=== PATIENT | male | born 1975 | race Caucasian/White ===

== ENCOUNTER → 2018-07-12 11:28 | Outpatient (CLI) | payer OTHER, SELFPAY ==
--- NOTE | 2018-07-12 11:50 | XR_ITS ---
XR chest 2V HISTORY: ITS.REASON: LT CHEST PAIN,SMOKER ORDERING PHYSICIAN: Oj Slater PATIENT AGE: 43 years COMPARISON: None FINDINGS: The cardiomediastinal silhouette and pulmonary vascularity are within normal limits. The lungs are clear without infiltrates, suspicious nodules, or pleural effusions. There is a 10 mm calcified nodule overlying the right lower lobe consistent with a granuloma. No acute bony abnormalities. IMPRESSION: Negative chest, no acute finding
== END ==
PROVIDERS: PCP Internal Medicine; Visit Provider Internal Medicine
DX: R07.89 Other chest pain (principal); Z72.0 Tobacco use
CPT/HCPCS: 71046

== ENCOUNTER → 2018-08-04 10:28 | Outpatient (CLI) | payer OTHER, SELFPAY ==
--- NOTE | 2018-08-04 10:43 | CT_ITS ---
CT chest wo/w con HISTORY: ITS.REASON: CHEST PAIN ORDERING PHYSICIAN: Oj Slater PATIENT AGE: 43 years COMPARISON: None Technique: Axial images obtained without and with contrast. 75 mL's Optiray 370 utilized.. Sagittal, and coronal reformatted images are also generated and reviewed. All CT scans at the facility use one or more dose reduction, viz: automated exposure control, ma/kV adjustment per patient size (including targeted exams where dose is matched to indication, i.e. head), or iterative reconstruction technique. FINDINGS: There are scattered small axillary and mediastinal lymph nodes. No enlarged lymph nodes apparent. No evidence of aortic aneurysm, dissection, or central pulmonary embolus. No pericardial effusion. No coronary artery calcifications apparent on the unenhanced images. There there is evidence of old granulomatous disease with a few calcified granulomas.. No suspicious pulmonary lesion. No lobar consolidation, collapse, central obstructing lesion, or pleural effusion no acute bony findings. Upper abdominal images show cortical scarring of the right kidney posteriorly. Along the superior pole the right kidney there is an indeterminate area of isodensity with some minimal peripheral calcification. This area measures approximately 1.8 x 1.2 cm and is indeterminate. Just lateral to this there is an area of decreased attenuation measuring 1.5 cm and may be due to a cyst with an adjacent area of cortical scarring. Ultrasound the kidney may be of further value to determine if these areas are cystic or solid. IMPRESSION: 1. No acute finding of the chest. 2. Indeterminate lesions of the upper pole the right kidney which may be better evaluated with ultrasound
== END ==
PROVIDERS: PCP Internal Medicine; Visit Provider Internal Medicine
DX: R07.9 Chest pain, unspecified (principal)
CPT/HCPCS: 71270; Q9967

== ENCOUNTER → 2018-08-13 10:35 | Outpatient (CLI) | payer OTHER, SELFPAY ==
--- NOTE | 2018-08-13 10:40 | US_ITS ---
US Kidney CLINICAL INDICATION: Follow-up renal lesion, abnormal CT scan ITS.REASON: RENAL LESION ORDERING PHYSICIAN: Oj Slater PATIENT AGE: 43 years Comparison: 08/04/2018 FINDINGS: Right kidney: The right kidney measures 12 x 7 x 7 cm. In the upper pole the right kidney there is a 18 x 8 mm cyst. This corresponds to the cystic appearing lesion noted on the CT scan. In addition, there is a complex tear echogenicity in the superior pole the right kidney corresponding to the indeterminate lesion noted on CT. This does show some increase echogenicity consistent with some calcification. This area measures 17 x 17 mm. Both of these areas are associated with scarring on the CT scan. The left kidney is 11 x 7 x 7 cm and has an unremarkable appearance. IMPRESSION: 1. There are 2 lesions in the upper pole the right kidney one of which represents a benign-appearing cyst. The second lesion measuring 17 x 17 mm corresponds to the indeterminate abnormality on the CT scan. This does not appear to represent a simple cyst by ultrasound. Could be due to an area of scarring with some minimal calcification. One cannot exclude possibility of neoplasm. Consider urology consult. Suggest [address] follow-up without contrast. Also if the patient has old CTs at another institution, would recommend obtaining those for comparison.
== END ==
PROVIDERS: PCP Internal Medicine; Visit Provider Internal Medicine
DX: N28.9 Disorder of kidney and ureter, unspecified (principal)
CPT/HCPCS: 76770

== ENCOUNTER → 2022-06-16 16:14 | Outpatient (CLI) | payer OTHER, SELFPAY ==
--- NOTE | 2022-06-16 16:20 | XR_ITS ---
PROCEDURE INFORMATION: Exam: XR Chest Exam date and time: 06/16/2022 4:27 PM Age: 47 years old Clinical indication: Patient HX: Previous cough and pain in left shoulder blade TECHNIQUE: Imaging protocol: Radiologic exam of the chest. Views: 2 views. COMPARISON: CHESTWW CT chest wo/w con 08/04/2018 11:09 AM FINDINGS: Lungs: There is a chronic 9 mm calcified granuloma in the right lower lobe as seen on prior chest CT of 08/04/2018. There are other ovoid densities projected over the upper and lower chest which have the appearance of overlying buttons/clothing artifacts. No pulmonary consolidation. No acute findings. Pulmonary vessels do not appear congested. Lung volumes within normal limits. Pleural spaces: Unremarkable. No significant pleural effusion. No pneumothorax. Heart/Mediastinum: The cardiac silhouette is normal. Bones/joints: There are spinal degenerative changes, with multilevel disc narrrowing and spondylosis.There is no evidence of acute fracture. Mild anterior wedge deformities in the lower thoracic and upper lumbar spine, chronic compared with 2019. IMPRESSION: 1. No acute findings. 2. Chronic granulomatous changes.
--- NOTE | 2022-06-16 16:39 | ECG_ITS ---
APPROVED REPORT Exam: Resting ECG HR:62 bpm ECG Measurements Heart Rate 62 AXES IL 144 P 59 QRSd 102 QRS 67 QT 363 T 12 QTc 367 Conclusion SINUS RHYTHM NORMAL ECG Electronically signed by : Oj Slater MD 06/20/2022 18:03:56
== END ==
PROVIDERS: PCP Internal Medicine; Visit Provider Internal Medicine
DX: R05.9 Cough, unspecified (principal); I10 Essential (primary) hypertension; M25.512 Pain in left shoulder
CPT/HCPCS: 71046; 93005

== ENCOUNTER → 2022-06-21 08:02 | Outpatient (CLI) | payer OTHER, SELFPAY ==
[2022-06-21 08:52] LABS: Microalbumin/Creatinine Ratio 17.4
[2022-06-21 09:11] LABS: Creatinine,Urine Random 66 mg/dL (Not Estab.); Hemoglobin A1C 10.4 % (4.0-6.0)
[2022-06-21 09:14] LABS: Alanine Aminotransferase 34 U/L (12-78); Alkaline Phosphatase 78 U/L (38-126); Anion Gap 8.6 mEq/L (5-15); Aspartate Amino Transferase 25 U/L (17-59); Bilirubin,Total 0.6 mg/dl (0.2-1.3); Blood Urea Nitrogen 12 mg/dl (9-20); Calcium 9.2 mg/dl (8.4-10.2); Carbon Dioxide 27 mmol/L (22.0-30.0); Chloride 104 mmol/L (98-107); Chol/HDL Ratio 7.6 (1-3.5); Cholesterol 250 mg/dl (140-200); Estimated Glomerular Filt Rate 145 ml/min (>60); GFR (African American) 176 ML/MIN (>60); Globulin 2.5 g/dL (1.3-3.2); Glucose 177 mg/dl (74-100); HDL Cholesterol 33 mg/dl (40-60); Potassium 4.6 mmoL/L (3.5-5.1); Sodium 135 mmol/L (136-145); Total Protein,Serum 7.5 g/dl (6.3-8.2)
[2022-06-21 09:15] LABS: Triglycerides 498 mg/dl (30-150)
[2022-06-21 09:25] LABS: Direct LDL Cholesterol 109.56 mg/dL (100-129)
== END ==
PROVIDERS: PCP Internal Medicine; Visit Provider Internal Medicine
DX: E11.9 Type 2 diabetes mellitus without complications (principal); I10 Essential (primary) hypertension; E78.5 Hyperlipidemia, unspecified
CPT/HCPCS: 36415; 80053; 80061; 82043; 82570; 83036

== ENCOUNTER → 2022-07-16 17:04 | Outpatient (CLI) | payer OTHER, SELFPAY ==
[2022-07-16 18:49] LABS: Blood Urea Nitrogen 15 mg/dl (9-20); Estimated Glomerular Filt Rate 121 ml/min (>60); GFR (African American) 147 ML/MIN (>60)
== END ==
PROVIDERS: PCP Internal Medicine; Visit Provider Internal Medicine
DX: Z01.812 Encounter for preprocedural laboratory examination (principal)
CPT/HCPCS: 82565; 84520

== ENCOUNTER → 2022-08-07 07:51 | Outpatient (CLI) | payer OTHER, SELFPAY ==
--- NOTE | 2022-08-07 | CA_ITS ---
APPROVED REPORT Exam: Exercise Treadmill Technologist: Annamaria Prather, Ht: 6 ft 1 in Wt: 219 lbs BSA: 2.24 m2 HR: 69 bpm BP: 156/90 mmHg Rhythm: NSR Medical History Medications: Lisinopril,,,,, Lipitor,,,,, JuARDIANCE,,,,, Cardiac Risk Factors: HTN, Hyperlipidemia, Diabetes (non-insulin), FHX of CAD, Smoking Stress Test Details Test: Moi HR Resting HR: 79 bpm Max Heart Rate (APMHR): 174 bpm Max HR Achieved: 144 bpm Target HR (85% APMHR): 148 bpm % of APMHR: 83 Recovery HR: 108 bpm BP Resting BP: 137/92 mmHg Max BP: 229/106 mmHg Recovery BP: 229.0/106.0 mmHg ECG Resting ECG: NSR Clinical Exercise duration: 09:01 min Highest Stage Achieved: Exercise capacity: 10.1 METs Stress ECG Conclusion PT EXERCISED ON MOI PROTOCOL TOTAL OF 9 MINUTES. NO CP NOTED. OCCASIONAL PAC NOTED. APPROX 1-1.5MM UPSLOPING ST DEPRESSION LATERALLY AND 1MM INFERIORLY. EKG CHANGES NEGATIVE FOR ISCHEMIA.HYPERTENSIVE BP RESPONSE.GOOD EXERCISE TOLERANCE. Test Summary REST . . . . . . . Sitting REST . . . . . . . Sitting REST . . . . . . . Standing REST 03:33 0.0 0.0 79 . 137/ 92 . . Stage 1 01:00 10.0 1.7 89 . . . . Stage 1 02:00 10.0 1.7 100 . . . . Stage 1 03:00 10.0 1.7 98 . 170/ 90 . . Stage 2 01:00 12.0 2.5 103 . . . . Stage 2 02:00 12.0 2.5 111 . . . . Stage 2 03:00 12.0 2.5 115 . 216/ 96 . . Stage 3 01:00 14.0 3.4 130 . . . . Stage 3 02:00 14.0 3.4 138 . . . . Stage 3 03:00 14.0 3.4 144 . 220/ 90 . . Stage 4 00:01 16.0 4.2 144 . . . Stop exercise at 09:01 RECOVERY 01:00 0.0 0.0 123 . . . . RECOVERY 02:00 0.0 0.0 105 . 229/106 . . RECOVERY 03:00 0.0 0.0 97 . 229/106 . . RECOVERY 04:00 0.0 0.0 97 . 209/ 94 . . RECOVERY 05:00 0.0 0.0 95 . 189/ 90 . . RECOVERY 06:00 0.0 0.0 92 . 189/ 90 . . RECOVERY 06:30 0.0 0.0 90 . 163/ 89 . . Electronically signed by : Oj Slater MD 08/13/2022 13:31:45
== END ==
PROVIDERS: PCP Internal Medicine; Visit Provider Internal Medicine
DX: R07.9 Chest pain, unspecified (principal)
CPT/HCPCS: 93017

== ENCOUNTER → 2023-01-12 16:45 | Outpatient (CLI) | payer OTHER, SELFPAY ==
[2023-01-12 17:52] LABS: Hemoglobin A1C 8.1 % (4.0-6.0)
[2023-01-12 18:34] LABS: Alanine Aminotransferase 36 U/L (12-78); Albumin Level 4.4 g/dl (3.5-5.0); Albumin/Globulin Ratio 1.6 (1.1-1.8); Alkaline Phosphatase 74 U/L (38-126); Anion Gap 14.1 mEq/L (5-15); Aspartate Amino Transferase 28 U/L (17-59); Bilirubin,Total 0.3 mg/dl (0.2-1.3); Blood Urea Nitrogen 16 mg/dl (9-20); Calcium 9.2 mg/dl (8.4-10.2); Carbon Dioxide 25 mmol/L (22.0-30.0); Chloride 106 mmol/L (98-107); Chol/HDL Ratio 3.8 (1-3.5); Cholesterol 136 mg/dl (140-200); Estimated Glomerular Filt Rate 121 ml/min (>60); GFR (African American) 146 ML/MIN (>60); Globulin 2.8 g/dL (1.3-3.2); Glucose 134 mg/dl (74-100); HDL Cholesterol 36 mg/dl (40-60); Potassium 4.1 mmoL/L (3.5-5.1); Sodium 141 mmol/L (136-145); Total Protein,Serum 7.2 g/dl (6.3-8.2); Triglycerides 188 mg/dl (30-150); VLDL Cholesterol 38 mg/dL (0-40)
[2023-01-12 18:45] LABS: Direct LDL Cholesterol 76.32 mg/dL (100-129)
[2023-01-12 19:01] LABS: Creatinine,Urine Random 81 mg/dL (Not Estab.)
[2023-01-12 19:04] LABS: Microalbumin/Creatinine Ratio 9.8
== END ==
PROVIDERS: PCP Internal Medicine; Visit Provider Internal Medicine
DX: E11.9 Type 2 diabetes mellitus without complications (principal); E78.5 Hyperlipidemia, unspecified; I10 Essential (primary) hypertension
CPT/HCPCS: 80053; 80061; 82043; 82570; 83036

== ENCOUNTER 2023-08-03 14:55 | Outpatient (POV) | payer BC, SELFPAY ==
--- NOTE | 2023-08-03 15:19 | EXP.PAIN.OV ---
HPI Data of Consult Patient: new to practice Consult date: 08/03/23 Requesting Physician: Trish Singer APRN Primary Care Provider: Oj Slater MD Consult Narrative Reason for consult: Scapular pain History of present illness: Mr. Mason is a 48 year old male who presents today as a new patient. He is a referral from Dr. Slater's office. Today he rates his pain a 1 out of 10. Patient states that he will have random shoulder pains on and off again. Patient states this has been going on for years unrelated to any specific trauma or injury. He states that when it is flared up it will be a pulsating achy sensation that does interfere with his activities of daily living. Patient does state initially it started more along the left shoulder however it is now at the right shoulder and it has been sometime since the left is bothered him. Patient has had cardiac workup with no acute findings. Patient has also done some imaging at [facility] however he is unsure what all imaging was done. Patient has tried Tylenol and ibuprofen along with heat and ice and topicals with minimal relief. Patient does state that he feels like when it does flareup it is more related to possible nerves.Patient was prescribed gabapentin from Dr. Slater's office however he states he did not like the way it made him feel and he discontinued this medication. His Maxim has been reviewed and is appropriate. CC: Trish Singer APRN [facility] Disclaimer: The information contained in this section may have been updated after the patient was seen, as this information can be updated by other users. Social History Smoking Status: Unknown if ever smoked alcohol intake: never current occupational status: employed Travel in the last 8 weeks: None Review of Systems Review of Systems Review of systems:: pertinent systems reviewed and negative unless documented below Review of systems (narrative): Review of Systems: General: No recent weight changes, no fever, no sleep disturbances Respiratory: No cough, no shortness of air, no recurring pulmonary infections Cardiovascular/peripheral vascular: No chest pain, no palpitations, no edema, no shortness of breath Gastrointestinal: No new onset incontinence, normal bowel movements reported Genitourinary: No new onset incontinence Musculoskeletal: Right scapular pain Psychiatric: [Normal mood/affect] Neurological: [Denies weakness in extremities], [denies balance issues] Meds Home Medications and Allergies New Prescriptions to Start Prescriptions: Objective Narrative: Physical Exam: General: Alert and oriented x3, no acute distress, pleasant and cooperative Lungs: Respirations even and unlabored, symmetrical chest expansion Eyes: PERRL Musculoskeletal: Flexion and extension of lumbar spine within normal limits Neurological: Speech clear, no gross sensory deficit Assessment and Plan *Assessment and plan (1) Chronic scapular pain: Status: Acute Category: Medical Code(s): M89.8X1 - Other specified disorders of bone, shoulder; G89.29 - Other chronic pain (2) Myofascial pain: Status: Acute Category: Medical Code(s): M79.18 - Myalgia, other site Plan Patient will have random flareups of his scapular pain however he is not experiencing any issues currently. I have discussed with the patient in future he can contact us at his convenience when he has these flareups. I have discussed with the patient that he may have additional relief with trigger point injections when this pain occurs. I will order the patient a compounded cream to have on hand. Patient will contact us for his next follow-up appointment. Patient agrees with this plan of care. Patient has been instructed to contact the clinic with any concerns before the next appointment. Dr. Alicia has reviewed this note and agrees with this plan of care. This note was dictated using voice recognition software and make contain errors or omissions.
[2023-08-03 15:56] VITALS: BP 146/84; PULSE 71; RESP 18; O2SAT 97; BMI 28.3
== END 2023-08-03 23:59 | disposition home or self-care (01) ==
LOC: SC.PAIN 14:56
PROVIDERS: PCP Internal Medicine; Visit Provider Nurse Practitioner Family
DX: M89.8X1 Other specified disorders of bone, shoulder (principal); G89.29 Other chronic pain; M79.18 Myalgia, other site
CPT/HCPCS: 99202; G0463

== ENCOUNTER 2023-08-26 16:38 | Outpatient (CLI) | payer BC, SELFPAY ==
[2023-08-26 17:21] LABS: Basophils # 0.1 K/mm3 (0-0.2); Basophils % 0.5 % (0.1-2.0); Eosinophils # 0.2 K/mm3 (0.0-0.4); Eosinophils % 1.8 % (0.1-12.0); Hematocrit 49.6 % (42.0-52.0); Hemoglobin 16.8 g/dL (14.1-18.0); Lymphocytes # 3.7 K/mm3 (0.7-4.5); Lymphocytes % 30.7 % (10-50); Mean Corpuscular HGB Conc 33.9 g/dL (31.8-35.4); Mean Corpuscular Volume 91.4 fl (80-94); Mean Platelet Volume 7.7 fl (7.4-10.4); Monocytes # 0.5 K/mm3 (0.1-1.0); Monocytes % 4.5 % (1.7-9.3); Neutrophils # 7.5 K/mm3 (1.8-7.8); Neutrophils % 62.4 % (37.0-80.0); Platelet Count 279 K/mm3 (142-424); Red Blood Count 5.42 M/mm3 (4.60-6.20); Red Cell Distribution Width 13.6 % (11.5-17.5)
[2023-08-26 18:44] LABS: Alanine Aminotransferase 32 U/L (12-78); Albumin Level 4.3 g/dl (3.5-5.0); Albumin/Globulin Ratio 1.8 (1.1-1.8); Alkaline Phosphatase 79 U/L (38-126); Anion Gap 14.9 mEq/L (5-15); Aspartate Amino Transferase 22 U/L (17-59); Bilirubin,Total 0.4 mg/dl (0.2-1.3); Blood Urea Nitrogen 15 mg/dl (9-20); Calcium 9.2 mg/dl (8.4-10.2); Carbon Dioxide 24 mmol/L (22.0-30.0); Chloride 104 mmol/L (98-107); Chol/HDL Ratio 2.5 (1-3.5); Cholesterol 105 mg/dl (140-200); Estimated Glomerular Filt Rate 104 ml/min (>60); GFR (African American) 125 ML/MIN (>60); Globulin 2.4 g/dL (1.3-3.2); Glucose 103 mg/dl (74-100); HDL Cholesterol 42 mg/dl (40-60); Potassium 3.9 mmoL/L (3.5-5.1); Sodium 139 mmol/L (136-145); Total Protein,Serum 6.7 g/dl (6.3-8.2); Triglycerides 147 mg/dl (30-150); VLDL Cholesterol 29 mg/dL (0-40)
[2023-08-26 18:57] LABS: Direct LDL Cholesterol 54.37 mg/dL (100-129)
[2023-08-26 19:44] LABS: Hemoglobin A1C 7.5 % (4.0-6.0)
[2023-08-26 20:05] LABS: Creatinine,Urine Random 245 mg/dL (Not Estab.)
[2023-08-26 20:06] LABS: Microalbumin/Creatinine Ratio 5.6
== END 2023-08-26 23:59 | disposition home or self-care (01) ==
LOC: LAB.DROPOF 16:39
PROVIDERS: PCP Internal Medicine; Visit Provider Internal Medicine
DX: E11.9 Type 2 diabetes mellitus without complications (principal); I10 Essential (primary) hypertension; E78.5 Hyperlipidemia, unspecified; R53.83 Other fatigue; M79.2 Neuralgia and neuritis, unspecified; Z79.84 Long term (current) use of oral hypoglycemic drugs
CPT/HCPCS: 80053; 80061; 82043; 82570; 83036; 85025

== ENCOUNTER 2024-02-23 13:52 | Outpatient (CLI) | payer BC, SELFPAY ==
--- OUTSIDE RECORDS SUMMARY | 2024-02-23 13:57 | XMS_ITS | Encounter Summary ---
Author Organization Healthcare Address [address] [place] [address] Care Team Providers Care Press Operator Automatic Name Role Phone Unavailable Primary Care Provider Unavailabl e Encounter Details Date Type Department Care Team (Late st Contact Info) Description 10/24/2022 Telephone [facility] [address] [place] [address] Tali Ovalle, RN [facility] Social History Tobacco Use Types Packs/Day Years Used Date Smoking Tobacco: Never Assessed Sex and Gender Information Value Date Recorded Sex Assigned at Not on file Legal Sex Male 7:40 PM EDT Gender Identity Not on file Sexual Orientation Not on file documented as of this encounter Plan of Treatment Not on file documented as of this encounter Visit Diagnoses Not on filedocumented in this encounter
--- OUTSIDE RECORDS SUMMARY | 2024-02-23 13:57 | XMS_ITS | Encounter Summary ---
Author Organization Healthcare Address [address] [place] [address] Care Team Providers Care Buttonhole Tacker Name Role Phone Oj Slater MD Primary Care Provider [phone] Encounter Details Date Type Department Care Team (Late st Contact Info) Description 11/03/2022 Telephone [facility] [address] [place] [address] Tali Ovalle, RN [facility] Social History [...] Diagnoses Not on filedocumented in this encounter Care Teams Buttonhole Tacker Relationship Specialty Start Date End Date Oj Slater MD [address] [place] [address] PCP - General 10/31/22 documented as of this encounter
--- OUTSIDE RECORDS SUMMARY | 2024-02-23 13:57 | XMS_ITS | Encounter Summary ---
Author Organization [facility] Address [address] [place] [address] Care Team Providers Care Preschool Assistant Name Role Phone Oj Slater MD Primary Care Provider [phone] Encounter Details Date Type Department Care Team (Latest Contact Info) Description 10/31/2022 Travel Social History Tobacco Use Types Packs/Day Years [...] on filedocumented in this encounter Care Teams Preschool Assistant Relationship Specialty Start Date End Date Oj Slater MD [address] [place] [address] PCP - General 10/31/22 documented as of this encounter
--- OUTSIDE RECORDS SUMMARY | 2024-02-23 13:57 | XMS_ITS | Encounter Summary ---
Author Organization Healthcare Address [address] [place] [address] Care Team Providers Care Flight Nurse Name Role Phone Unavailable Primary Care Provider Unavailabl e Encounter Details Date Type Department Care Team (Late st Contact Info) Description 10/29/2022 Telephone [facility] [address] [place] [address] Tali Ovalle, RN [facility] Social History [...]
--- OUTSIDE RECORDS SUMMARY | 2024-02-23 13:57 | XMS_ITS | Encounter Summary ---
Author Organization [facility] Address [address] [place] [address] Care Team Providers Care Vaccine Manager Name Role Phone Unavailable Primary Care Provider Unavailabl e Encounter Details Date Type Department Care Team (Latest Contact Info) Description 10/29/2022 Travel Social History Tobacco Use Types Packs/Day [...]
--- OUTSIDE RECORDS SUMMARY | 2024-02-23 13:57 | XMS_ITS | Encounter Summary ---
Author Organization [facility] Address [address] [place] [address] Care Team Providers Care Paper Final Inspector Name Role Phone Oj Slater MD Primary Care Provider [phone] Reason for Referral * Imaging (Routine) - Closed Specialty Diagnoses / Procedures Referred By Petra rodarte Referred To Contact Radiology Diagnoses Coronary arteriosclerosis Procedures CT Angio Cardiac Coronary Arteries Galen Peters MD [address] [place] [address] Phone: tel: fax: Referral ID Status Reason Start Date Expiration Date Visits Re quested Visits Authorized [id number] Closed 10/08/2022 04/08/2024 1 1 Reason for Visit * Imaging (Routine) - Closed Specialty Diagnoses / Procedures Referred By Petra rodarte Referred To Contact Radiology Diagnoses Coronary arteriosclerosis Procedures CT Angio Cardiac Coronary Arteries Galen Peters MD [address] [place] [address] Phone: tel: fax: Referral ID Status Reason Start Date Expiration Date Visits Re quested Visits Authorized [id number] Closed 10/08/2022 04/08/2024 1 1 Encounter Details Date Type Department Care Team (Latest Contact Info) Description 10/31/2022 9:47 AM EDT - 10/31/2022 11:59 PM EDT Hospital Encounter [facility] [address] [place] [address] Coronary arteriosclerosis Discharge Disposition: Home or Self Care Social History Tobacco Use Types Packs/Day Years Used Date Smoking Tobacco: Never Assessed Sex and Gender Information Value Date Recorded Sex Assigned at Not on file Legal Sex Male 7:40 PM EDT Gender Identity Not on file Sexual Orientation Not on file documented as of this encounter Last Filed Vital Signs Vital Sign Reading Time Taken Comments Blood Pressure 131/82 10/31/2022 11:04 AM EDT Pulse 68 10/31/2022 11:04 AM EDT Temperature - - Respiratory Rate 19 10/31/2022 10:00 AM EDT Oxygen Saturation 96% 10/31/2022 11:04 AM EDT Inhaled Oxygen Concentration - - Weight 102 kg (224 lb) 10/31/2022 10:00 AM EDT Height - - Body Mass Index - - documented in this encounter Discharge Instructions * Attachments The following attachments cannot be sent through Care Everywhere. * Contrast Imaging Discharge Instructions ([place]) ([place]) documented in this encounter Plan of Treatment Not on file documented as of this encounter Procedures Procedure Name Priority Date/Time Associated Diagnosis Comments CT ANGIO CARDIAC CORONARY ARTERIES Routine 10/31/2022 11:00 AM EDT Coronary arteriosclerosis POCT CREATININE ISTAT UNSOLICITED RESULTS Routine 10/31/2022 10:12 AM EDT documented in this encounter Results * CT Angio Cardiac Coronary Arteries (10/31/2022 11:00 AM EDT) Anatomical Region Laterality Modality Heart Computed Tomogra phy Impressions 10/31/2022 3:36 PM EDT IMPRESSION: 1. Minimal coronary calcification with an Agatston score = 2 using the AJ-130 method, which represents 76th percentile when matched for age, gender and ethnicity. ??Vascular age is 48 years. 2. Minimal focal stenosis of the LAD secondary to noncalcified plaque. Minimal focal stenosis of the RCA secondary to mixed plaque. 3. CAD-RADS 1: Management recommendations: ??Consider non-atherosclerotic causes of chest pain. Consider referral for outpatient follow-up for preventative therapy and risk factor modification. ? 4. ??Dependent filling defect in the SVC is favored to represent artifact secondary to contrast admixture, however thrombus cannot definitely be excluded. Dedicated MRV or CTV may be considered. 5. Hepatic steatosis. Small hiatal hernia. CRITICAL RESULT: No. COMMUNICATION: Per this written report. By electronically signing this report, I, the attending physician, attest that I have personally reviewed the images/data for the above examination(s) and agree with the final edited report. Drafted by Dudley Grissom MD on 10/31/2022 11:24 AM Final report signed by Pretty Madrigal MD on 10/31/2022 3:36 PM Narrative 10/31/2022 3:36 PM EDT CLINICAL INDICATION: 47-year-old male evaluated at the request of Galen Peters M.D. Symptoms: Not available Clinical Data Height: Not available Weight: 102 kg Risk Factors: Not available Relevant Cardiac Diagnostic Tests: N/a TECHNIQUE: Procedure Data Image Acquisition: A Dual source 192 MDCT scanner (Som[employer] Force, [employer]) was used for data acquisition. A non-contrast coronary calcium scan was initially performed. Bolus tracking in the ascending aorta with a threshold of 220HU was performed. Immediately afterwards, ECG synchronized Cardiac CT was then performed from cardiac base to apex using prospective gating. A total of 80 mL Omnipaque 350mgI/mL contrast media was administered at 6 mL/sec followed by a saline flush using a biphasic injection protocol. ??A tube voltage of 120 kVp was used. ?? The patient received the following medications prior to the Cardiac CT: 50mg of po metoprolol, and 0.8mg sublingual nitroglycerin. The average heart rate at the time of acquisition was 67 bpm (64 bpm to 68 bpm) and regular. Image Reconstruction: Transaxial images were reconstructed at 0.75 mm slice thickness. ??Data was reviewed interactively on an advanced workstation ([employer]) capable of 2 and 3 dimensional displays in all conventional reconstruction formats including multiplanar reformations, maximum intensity projections, curved multiplanar reformations, and volume rendered reconstructions. Selected routine images displaying relevant coronary anatomy and pathology were saved and sent to PACS. Complications: None Technical Quality: Overall image quality is Good. Coronary artery opacification is Adequate and the images are free of significant artifact. Total DLP (Dose-Length Product): 293.82 mGy.cmmGycm. (4.1 mSv) Please note: The reported value represents the total of one or more individual components during the CT acquisition on this date and at this time, and as such, the same value may appear in more than one CT report depending on the interpreting/reporting physicians. COMPARISON: None available. FINDINGS: -CT Coronary Calcium Scoring- LMA= 0 LAD= 0 LCX= 0 RCA= 2 Total calcium score = 2 using the AJ-130 method. This score is in the 76th percentile rank for age and gender, meaning that 24 % of patients of the same age and gender will have a higher score. The total volume score is 3.1. The calculated vascular age for this patient is 48 years. There is no identifiable calcification in the aortic wall, mitral annulus/valve, pericardium, myocardium. -Coronary CT Angiography- Coronary Arteries: The coronaries have normal origin and proximal course. The coronary arterial system is right ??dominant. Note: Stenosis is reported as maximum percentage diameter stenosis. Stenosis grading is reported using the following scheme. Quantitative Stenosis Grading: CAD-RADS 0: 0% - No visible stenosis CAD-RADS 1: 1-24% - Minimal stenosis CAD-RADS 2: 25-49% - Mild stenosis CAD-RADS 3: 50-69% - Moderate stenosis CAD-RADS 4A: 70-99% - Severe stenosis in 1-2 vessels CAD-RADS 4B: Left main >50%, or 3 vessel >70% CAD-RADS 5: 100% - Occluded Left Main: CAD-RADS 0 The left main bifurcates into the left anterior descending artery and left circumflex artery. LAD and Diagonals: CAD-RADS 1. Minimal focal stenosis of the proximal LAD secondary to noncalcified plaque. LCx and Obtuse Marginals: CAD-RADS 0. The LCx is a small caliber vessel which becomes very diminutive after giving off its second obtuse marginal branch. Uptake is marginal branches are without atherosclerotic plaque or stenosis. RCA: CAD-RADS 1. Proximal RCA demonstrates small focal mixed plaque where there is minimal stenosis. Non Coronary Cardiac Findings: Normal cardiac chamber size. No pericardial thickening or calcification. Normal interatrial and interventricular septum, aortic and mitral valves, pulmonary veins and imaged central veins. Extra Cardiac Structures: Central and branch pulmonary arteries in the field of view are unremarkable. Thoracic aorta and imaged thoracic aortic branches in the field of view are unremarkable. Dependent filling defect in the SVC. No mediastinal or hilar adenopathy. Calcified mediastinal lymph node. ??No suspicious pulmonary nodules. Pulmonary calcified granuloma. Hepatic steatosis. Small hiatal hernia. Procedure Note Pretty Madrigal MD - 10/31/2022 CLINICAL INDICATION: 47-year-old male evaluated at the request of Galen Peters M.D. Symptoms: Not available Clinical Data Height: Not available Weight: 102 kg Risk Factors: Not available Relevant Cardiac Diagnostic Tests: N/a TECHNIQUE: Procedure Data Image Acquisition: A Dual source 192 MDCT scanner (Som[employer] Force, [employer])was used for data acquisition. A non-contrast coronary calcium scan wasinitially performed. Bolus tracking in the ascending aorta with athreshold of 220HU was performed. Immediately afterwards, ECG synchronizedCardiac CT was then performed from cardiac base to apex using prospectivegating. A total of 80 mL Omnipaque 350mgI/mL contrast media wasadministered at 6 mL/sec followed by a saline flush using a biphasicinjection protocol. A tube voltage of 120 kVp was used. The patient received the following medications prior to the Cardiac CT:50mg of po metoprolol, and 0.8mg sublingual nitroglycerin. The average heart rate at the time of acquisition was 67 bpm (64 bpm to 68bpm) and regular. Image Reconstruction: Transaxial images were reconstructed at 0.75 mm slice thickness. Data wasreviewed interactively on an advanced workstation ([employer]) capable of 2and 3 dimensional displays in all conventional reconstruction formatsincluding multiplanar reformations, maximum intensity projections, curvedmultiplanar reformations, and volume rendered reconstructions. Selectedroutine images displaying relevant coronary anatomy and pathology weresaved and sent to PACS. Complications: None Technical Quality: Overall image quality is Good. Coronary artery opacification is Adequate and the images are free ofsignificant artifact. Total DLP (Dose-Length Product): 293.82 mGy.cmmGycm. (4.1 mSv) Pleasenote: The reported value represents the total of one or more individualcomponents during the CT acquisition on this date and at this time, and assuch, the same value may appear in more than one CT report depending onthe interpreting/reporting physicians. COMPARISON: None available. FINDINGS: -CT Coronary Calcium Scoring- LMA= 0 LAD= 0 LCX= 0 RCA= 2 Total calcium score = 2 using the AJ-130 method. This score is in the 76thpercentile rank for age and gender, meaning that 24 % of patients of thesame age and gender will have a higher score. The total volume score is3.1. The calculated vascular age for this patient is 48 years. There is no identifiable calcification in the aortic wall, mitralannulus/valve, pericardium, myocardium. -Coronary CT Angiography- Coronary Arteries: The coronaries have normal origin and proximal course. The coronaryarterial system is right dominant. Note: Stenosis is reported as maximum percentage diameter stenosis.Stenosis grading is reported using the following scheme. Quantitative Stenosis Grading: CAD-RADS 0: 0% - No visible stenosis CAD-RADS 1: 1-24% - Minimal stenosis CAD-RADS 2: 25-49% - Mild stenosis CAD-RADS 3: 50-69% - Moderate stenosis CAD-RADS 4A: 70-99% - Severe stenosis in 1-2 vessels CAD-RADS 4B: Left main >50%, or 3 vessel >70% CAD-RADS 5: 100% - Occluded Left Main: CAD-RADS 0 The left main bifurcates into the left anteriordescending artery and left circumflex artery. LAD and Diagonals: CAD-RADS 1. Minimal focal stenosis of the proximal LADsecondary to noncalcified plaque. LCx and Obtuse Marginals: CAD-RADS 0. The LCx is a small caliber vesselwhich becomes very diminutive after giving off its second obtuse marginalbranch. Uptake is marginal branches are without atherosclerotic plaque orstenosis. RCA: CAD-RADS 1. Proximal RCA demonstrates small focal mixed plaque wherethere is minimal stenosis. Non Coronary Cardiac Findings: Normal cardiac chamber size. No pericardial thickening or calcification. Normal interatrial and interventricular septum, aortic and mitral valves,pulmonary veins and imaged central veins. Extra Cardiac Structures: Central and branch pulmonary arteries in the field of view areunremarkable. Thoracic aorta and imaged thoracic aortic branches in the field of vieware unremarkable. Dependent filling defect in the SVC. No mediastinal or hilar adenopathy. Calcified mediastinal lymph node. Nosuspicious pulmonary nodules. Pulmonary calcified granuloma. Hepaticsteatosis. Small hiatal hernia. IMPRESSION: IMPRESSION: 1. Minimal coronary calcification with an Agatston score = 2 using theAJ-130 method, which represents 76th percentile when matched for age,gender and ethnicity. Vascular age is 48 years. 2. Minimal focal stenosis of the LAD secondary to noncalcified plaque.Minimal focal stenosis of the RCA secondary to mixed plaque. 3. CAD-RADS 1: Management recommendations: Consider non-atheroscleroticcauses of chest pain. Consider referral for outpatient follow-up forpreventative therapy and risk factor modification. 4. Dependent filling defect in the SVC is favored to represent artifactsecondary to contrast admixture, however thrombus cannot definitely beexcluded. Dedicated MRV or CTV may be considered. 5. Hepatic steatosis. Small hiatal hernia. CRITICAL RESULT: No. COMMUNICATION: Per this written report. By electronically signing this report, I, the attending physician, saumya I have personally reviewed the images/data for the aboveexamination(s) and agree with the final edited report. Drafted by Dudley Grissom MD on 10/31/2022 11:24 AM Final report signed by Pretty Madrigal MD on 10/31/2022 3:36 PM us Galen Peters MD IMG CT PROCEDURES Final Resul t * (ABNORMAL) POCT creatinine (10/31/2022 10:12 AM EDT) Pathologist [facility] Creatinine, Point of Care 0.5(L) 0.8 - 1.3 mg/dL 10/31/2022 10:15 AM EDT [facility] POCT eGFR 127 mL/min/1. 73m*2 10/31/2022 10:15 AM EDT [facility] Nurse Midwife/Clinical Instructor ID Karen Curtis 10/31/2022 10:15 AM EDT [facility] Device ID [id number] 10/31/2022 10:15 AM EDT [facility] Comment 10/31/2022 10:15 AM EDT [facility] Comment:Testing performed on i-STAT at the point of care. Reported eGFRcr in mL/min/1.73m2 is based the CKD-EPI 2020 equation that does not use a race coefficient. Blood Venous blood specimen / Unknown 10/31/2022 10:12 AM EDT 10/31/2022 10:15 AM EDT us Generic Provider Poct LAB POINT OF CARE TEST DOCKED DEVICE UNSOLICITED RESULTS Final Result [facility] [address] [place] [address] documented in this encounter Visit Diagnoses Diagnosis Coronary arteriosclerosis Coronary atherosclerosis of unspecified type of vessel, quechan or graft documented in this encounter Administered Medications Inactive Administered Medications - up to 3 most recent administrations Medication Order MAR Action Action Date Dose Rate Site iohexol (OMNIPaque) 350 MG/ML injection 100 mL 100 mL, Intravenous, Once in imaging, 1 dose, Starting on Thu10/31/22 at 0956, Until Thu10/31/22 at 1101, Routine, Imaging Protocol Orders Given 10/31/2022 11:01 AM EDT 80 mL metoprolol tartrate (Lopressor) tablet 50 mg 50 mg, Oral, Once in imaging, 1 dose, Starting on Thu10/31/22 at 0955, Until Thu10/31/22 at 1003, Routine, Intraprocedure Given 10/31/2022 10:03 AM EDT 50 mg nitroglycerin (Nitrostat) SL tablet 0.8 mg 0.8 mg, Sublingual, Every 5 min PRN, Starting on Thu10/31/22 at 0955, Until Thu10/31/22 at 2154, Routine, Intraprocedure, chest pain, oo Given 10/31/2022 10:52 AM EDT 0.8 mg documented in this encounter Care Teams Paper Final Inspector Relationship Specialty Start Date End Date Oj Slater MD [address] [place], [place] [id number] PCP - General 10/31/22 documented as of this encounter
--- OUTSIDE RECORDS SUMMARY | 2024-02-23 13:57 | XMS_ITS | Clinical Summary ---
Author Organization [facility] Address [address] [place] [address] Care Team Providers Care Cosmetics Machine Operator Name Role Phone Oj Slater MD Primary Care Provider [phone] Allergies Active Allergy Reactions Criticality Noted Date Comments Penicillins Rash Low 10/31/2022 Social History Tobacco Use Types Packs/Day Years Used Date Smoking Tobacco: Never Assessed Sex and Gender Information Value Date Recorded Sex Assigned at Not on file Legal Sex Male 7:40 PM EDT Gender Identity Not on file Sexual Orientation Not on file Last Filed Vital Signs Vital Sign Reading Time Taken Comments Blood Pressure 131/82 10/31/2022 11:04 AM EDT Pulse 68 10/31/2022 11:04 AM EDT Temperature - - Respiratory Rate 19 10/31/2022 10:00 AM EDT Oxygen Saturation 96% 10/31/2022 11:04 AM EDT Inhaled Oxygen Concentration - - Weight 102 kg (224 lb) 10/31/2022 10:00 AM EDT Height - - Body Mass Index - - Plan of Treatment Health Maintenance Due Date Last Done Comments [facility]-Depression Screening 1976 [facility]-HIV Screening 1976 [facility]-Hepatitis C Screening 1976 [facility]-/Child/Adol SDOH Screenings 1976 [facility]- SDOH Screenings 01/12/1994 [facility]-Adult SDOH Screenings 01/12/1994 [facility]-DTaP,Tdap,and Td Vaccine s (1 - Tdap) 01/12/1995 [facility]-Hepatitis B Vaccines (1 of 3 - 19+ 3-dose series) 01/12/1995 CT Colonography 01/12/2021 Colonoscopy 01/12/2021 FIT-DNA 01/12/2021 FIT 01/12/2021 FOBT 01/12/2021 Sigmoidoscopy 01/12/2021 [facility]-Colorectal Cancer Screening 01/12/2021 [id number] Vaccine ( season) 2023 01/09/2021, 07/27/2020, 06/26/2020 [facility]-Influenza Vaccine (#1) 12/06/202301/29, 02/12/2017 [facility]-Zoster Vaccines (1 of 2) 01/12/2026 [facility]-RSV Vaccine: 60+ Years o r (1 - 1-dose 75+ series) 01/12/2051 [facility]-HIB Vaccines Aged Out No longer e ligible based on patient's age to complete this topic [facility]-HPV Vaccines Aged Out No longer e ligible based on patient's age to complete this topic [facility]-Hepatitis A Vaccines Aged Out No longer eligible based on patient's age to complete this topic [facility]-IPV Vaccines Aged Out No longer e ligible based on patient's age to complete this topic [facility]-Pneumococcal Vaccine: Pediatrics (0 to 5 Years) and At-Risk Patients (6 to 64 Years) Aged Out No longer eligible b ased on patient's age to complete this topic [facility]-Rotavirus Vaccines Aged Out No lo nger eligible based on patient's age to complete this topic Insurance [employer] Care Teams Cosmetics Machine Operator Relationship Specialty Start Date End Date Oj Slater MD [address] [place] [address] [facility] - General 10/31/22
--- NOTE | 2024-02-23 14:01 | XR_ITS ---
FINAL REPORT CLINICAL HISTORY: right wrist pain COMPARISON: None FINDINGS: RIGHT WRIST Three views demonstrate no acute fracture or dislocation. The visualized joint spaces are normally aligned. The soft tissues are unremarkable. IMPRESSION: No acute bony abnormality. Reviewed, Interpreted and Dictated by Glenn Lo MD Transcribed by Lara Simon Authenticated and [facility]
== END 2024-02-23 23:59 | disposition home or self-care (01) ==
LOC: RAD 13:55
PROVIDERS: PCP Internal Medicine; Visit Provider Physician Assistant
DX: G56.01 Carpal tunnel syndrome, right upper limb (principal)
CPT/HCPCS: 73110

== ENCOUNTER 2024-03-18 11:40 | Outpatient (CLI) | payer BC, SELFPAY ==
--- NOTE | 2024-03-18 12:08 | ECG_ITS ---
APPROVED REPORT Exam: Resting ECG HR:66 bpm ECG Measurements Heart Rate 66 AXES MT 153 P 50 QRSd 103 QRS 45 QT 375 T 43 QTc 388 Conclusion SINUS RHYTHM NORMAL ECG UNCONFIRMED REPORT Electronically signed by : Yasir Aggarwal MD 03/18/2024 17:26:39
[2024-03-18 12:16] VITALS: BMI 29.7
[2024-03-18 12:33] LABS: Basophils # 0.1 K/mm3 (0-0.2); Basophils % 0.6 % (0.1-2.0); Eosinophils # 0.1 K/mm3 (0.0-0.4); Eosinophils % 1.3 % (0.1-12.0); Hematocrit 49.1 % (42.0-52.0); Hemoglobin 17.3 g/dL (14.1-18.0); Lymphocytes # 3.6 K/mm3 (0.7-4.5); Lymphocytes % 33.1 % (10-50); Mean Corpuscular HGB Conc 35.3 g/dL (31.8-35.4); Mean Corpuscular Hemoglobin 31.5 pg (27.0-31.2); Mean Corpuscular Volume 89.4 fl (80-94); Mean Platelet Volume 7.2 fl (7.4-10.4); Monocytes # 0.6 K/mm3 (0.1-1.0); Monocytes % 5.4 % (1.7-9.3); Neutrophils # 6.4 K/mm3 (1.8-7.8); Neutrophils % 59.6 % (37.0-80.0); Platelet Count 251 K/mm3 (142-424); Red Cell Distribution Width 13.7 % (11.5-17.5); White Blood Count 10.8 K/mm3 (4.8-10.8)
[2024-03-18 12:41] LABS: Chloride 110 mmol/L (98-107); Potassium 3.8 mmoL/L (3.5-5.1); Sodium 141 mmol/L (136-145)
[2024-03-18 12:44] LABS: Anion Gap 11.8 mEq/L (5-15); Blood Urea Nitrogen 11 mg/dl (9-20); Carbon Dioxide 23 mmol/L (22.0-30.0); Creatinine Clearance Estimated 186 mL/min (50-200); Estimated Glomerular Filt Rate 120 ml/min (>60); GFR (African American) 146 ML/MIN (>60)
[2024-03-18 12:45] LABS: Calcium 9.1 mg/dl (8.4-10.2); Glucose 111 mg/dl (74-100)
== END 2024-03-18 23:59 | disposition home or self-care (01) ==
LOC: PREOP 11:41
PROVIDERS: Nurse Anesthetist, Certified Registered; PCP Internal Medicine; Visit Provider Orthopaedic Surgery
DX: Z01.810 Encounter for preprocedural cardiovascular examination (principal); Z01.812 Encounter for preprocedural laboratory examination
CPT/HCPCS: 80048; 85025; 93005

== ENCOUNTER 2024-03-21 08:22 | Day surgery (SDC) | payer BC, SELFPAY ==
[2024-03-21 08:48] VITALS: BMI 29.7
[2024-03-21 08:55] VITALS: BP 142/88; PULSE 72; RESP 18; TEMP 36.4; O2SAT 98
[2024-03-21] MEDS: LACTATED RINGERS 1000ML 1,000 ML 100 ML IV (09:06)
[2024-03-21 09:08] LABS: POC Glucose,Bedside 144 (70-110)
--- NOTE | 2024-03-21 09:13 | P.PNANES_ITS ---
[facility] Disclaimer: The information contained in this section may have been updated after the patient was seen, as this information can be updated by other users. Medical History HLD (hyperlipidemia) HTN (hypertension) Erectile dysfunction Diabetes Surgical History No history of previous surgery Family History Other Family history of cancer Family history of diabetes mellitus Family history of heart disease Social History Smoking Status: Current every day smoker alcohol intake: never substance use type: denies use current occupational status: employed Travel in the last 8 weeks: None [facility] Anesthesia Checklist Patient Identification Patient Identification: Arm Band and Verbal (Name & ) Structural Data Admitted From: Home Planned Operative Procedure/s: CTR Consent for Planned Operative Procedure(s) Verified: Yes Verified Documents: Surgical Consent and History and Physical NPO Status Verified Time NPO: 00:00 Additional verifications Anesthesia Reactions: No Hx Blood Transfusions: No Blood Transfusion Reaction: No Airway Assessment Mallampati Score:: Class II C-Spine Mobility Assessed: Yes TMJ Mobility Assessed: Yes Dentition: Good Dentition Neurological Assessment Level of Consciousness: Awake Hx Seizures: No Numbness or tingling in extremities: Yes Anesthesia Plan Anesthesia Risk discussed: Yes Anesthesia Plan: Verified ASA Class: II Anesthesia Type: General
[2024-03-21] MEDS: CLINDAMYCIN PHOSPHATE/D5W 900 MG/50 ML PIGGYBACK 100 MG IV (10:05)
[2024-03-21] MEDS: LIDOCAINE 1% W/EPI 1:100,000 20ML VIAL 20 ML (10:24)
--- NOTE | 2024-03-21 10:38 | P.OP_ITS ---
Date of procedure: 03/21/24 Pre-op Diagnosis:: Right carpal tunnel syndrome Post-op Diagnosis:: Same Procedure performed:: Right endoscopic carpal tunnel release Surgeon:: Celso Singer DO [employer] Salesperson(s):: Miles CHAN BASTING MACHINE OPERATOR:: Pierre Pnod Anesthesia: MAC and local Estimated blood loss (mL): 0 Operative findings:: See dictation Operative note:: Patient identified preoperatively. Right upper extremity marked with yes my initials. Transferred operative suite. Placed upon operating bed. Right upper extremity was then prepped and draped normal sterile fashion. Once prepped and draped final operative timeout performed to identify proper patient procedure and extremity. Everyone involved the case agreed. There is no counter indications to beginning. Did receive preoperative antibiotics. Marking pen was used to emre plan incision of the volar wrist. Esmarch was used to exsanguinate extremity pneumatic tourniquet inflated 250 mmHg. Local anesthesia infiltrated 1% lidocaine with epinephrine around the incision site transverse carpal ligament. Skin knife is used to incise the skin dissection was taken down to identify the most proximal aspect the transverse carpal ligament once identified the smaller dilator followed by the larger dilator was placed into the carpal tunnel followed by the 4.0 mm sled from the segue endoscopic carpal tunnel set. Camera was then placed into the carpal tunnel through the sled transverse carpal ligament clearly seen superiorly within the wound. Hook probe was used to identify the most distal aspect the transverse carpal ligament rasp was used to remove soft tissue from the undersurface. Then the hook blade from the segue endoscopic carpal tunnel release was utilized for release of the transverse carpal ligament this is completely released and directly visualized and the camera. Irrigation of the wound performed. Skin closed with 4-0 Monocryl Steri-Strips sterile hand dressing placed. Patient waken from anesthesia taken recovery in stable condition. Condition: stable Disposition: PACU Complications:: None apparent
[2024-03-21 10:40] VITALS: BP 119/73; PULSE 70; RESP 16; TEMP 36.4; O2SAT 94
[2024-03-21 10:50] VITALS: BP 108/68; PULSE 74; RESP 16; O2SAT 97
[2024-03-21 11:00] VITALS: BP 129/76; PULSE 69; RESP 17; O2SAT 95
[2024-03-21 11:10] VITALS: BP 131/79; PULSE 72; RESP 17; O2SAT 95
== END 2024-03-21 11:30 | disposition home or self-care (01) ==
PROVIDERS: PCP Internal Medicine; Visit Provider Orthopaedic Surgery
PROC: (CPT 64721; principal; 2024-03-21 10:00)
DX: G56.01 Carpal tunnel syndrome, right upper limb (principal)
CPT/HCPCS: 29848; 82962; J0736; J1100; J2250; J2405; J3010; J7120

== ENCOUNTER 2025-02-02 08:54 | Outpatient (CLI) | payer BC, SELFPAY ==
[2025-02-02 13:50] LABS: Hematocrit 50.4 % (42.0-52.0); Hemoglobin 17.6 g/dL (14.1-18.0); Immature Granulocytes % 0.6 %; Mean Corpuscular HGB Conc 34.9 g/dL (31.8-35.4); Mean Corpuscular Hemoglobin 30.9 pg (27.0-31.2); Mean Corpuscular Volume 88.4 fl (80-94); Nucleated Red Blood Cells % 0 %; Platelet Count 291 K/mm3 (142-424); Red Blood Count 5.70 M/mm3 (4.60-6.20); Red Cell Distribution Width-SD 40.0 fL; White Blood Count 11.4 K/mm3 (4.8-10.8)
[2025-02-02 14:52] LABS: Alanine Aminotransferase 27 U/L (12-78); Albumin Level 3.9 g/dl (3.5-5.0); Albumin/Globulin Ratio 1.0 (1.1-1.8); Alkaline Phosphatase 99 U/L (38-126); Anion Gap 15.2 mEq/L (5-15); Aspartate Amino Transferase 22 U/L (17-59); Bilirubin,Total 0.6 mg/dl (0.2-1.3); Blood Urea Nitrogen 12 mg/dl (9-20); Calcium 9.3 mg/dl (8.4-10.2); Carbon Dioxide 25 mmol/L (22.0-30.0); Chloride 103 mmol/L (98-107); Cholesterol 114 mg/dl (140-200); Creatinine,Serum 0.80 mg/dl (0.66-1.25); Estimated Glomerular Filt Rate 103 ml/min (>60); GFR (African American) 124 ML/MIN (>60); Globulin 3.8 g/dL (1.3-3.2); Glucose 143 mg/dl (74-100); HDL Cholesterol 36 mg/dl (40-60); Potassium 4.2 mmoL/L (3.5-5.1); Sodium 139 mmol/L (136-145); Total Protein,Serum 7.7 g/dl (6.3-8.2); Triglycerides 185 mg/dl (30-150)
[2025-02-02 15:36] LABS: Hemoglobin A1C 8.1 % (4.0-6.0)
[2025-02-04 10:11] LABS: Testosterone,Total 246 ng/dL (264-916)
--- OUTSIDE RECORDS SUMMARY | 2025-02-06 08:59 | XMS_ITS | Clinical Summary ---
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 Name Role Phone Oj Slater MD Primary Care Provider [phone] Allergies Active Allergy Reactions Criticality Noted Date [...] 01/12/2021 Sigmoidoscopy 01/12/2021 [facility]-Colorectal Cancer Screening 01/12/2021 [id number] Vaccine ( season) 2024 01/09/2021, 07/27/2020, 06/26/2020 [facility]-Influenza Vaccine (#1) 12/05/202401/29, 02/12/2017 [facility]-Zoster Vaccines (1 of 2) 01/12/2026 HPV Vaccines Aged Out No longer eligi ble based on patient's age to complete this topic [facility]-HIB Vaccines Aged Out No longer e ligible based on patient's age to complete this topic [facility]-Hepatitis A Vaccines Aged Out No longer eligible based on patient's age to complete this topic [facility]-IPV Vaccines Aged Out No longer e ligible based on patient's age to complete this topic [facility]-Pneumococcal Vaccine: Pediatrics (0 to 5 Years) and At-Risk Patients (6 to 49 Years) Aged Out No longer eligible b ased on patient's age to complete this topic [facility]-Rotavirus Vaccines Aged Out No lo nger eligible based on patient's age to complete this topic Insurance [employer] Care Teams Roll Slicing Machine Tender Relationship Specialty Start Date End Date Oj Slater MD [address] [facility] [address] [place] [address] PCP - General 10/31/22
== END 2025-02-02 23:59 ==
LOC: LAB.DROPOF 02-06 08:55
PROVIDERS: PCP Internal Medicine; Visit Provider Internal Medicine
DX: E78.5 Hyperlipidemia, unspecified (principal); I10 Essential (primary) hypertension; E11.9 Type 2 diabetes mellitus without complications; R68.82 Decreased libido; R53.83 Other fatigue
CPT/HCPCS: 80053; 80061; 82043; 82570; 83036; 84403; 85025